=== PATIENT | male | born 1995 | race Caucasian/White ===

== ENCOUNTER 2018-01-24 18:01 | Outpatient (CLI) | payer SELFPAY | END 2018-01-24 18:02 | disposition critical access hospital (66) | LOC: EMS 18:01 | PROVIDERS: ATTEND Surgery | DX: T67.5XXA Heat exhaustion, unspecified, initial encounter (principal) | CPT/HCPCS: A0425; A0429 ==

== ENCOUNTER 2018-01-24 18:08 | Emergency (ER) | payer SELFPAY ==
[2018-01-24] MEDS ORDERED: SODIUM CHLORIDE 0.9% 1,000 ML IV ONE (18:13)
--- NOTE | 2018-01-24 18:14 | ED Physician Documentation ---
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 He got off work and then went and had a beer or 2 and was found at a bus stop slumped over and altered. He has no specific complaints and just wants to drink water.) Review of Systems Constitutional: reports: Fatigue. denies: Fever, Chills Cardiac: denies: Chest pain / pressure, Palpitations Respiratory: denies: Dyspnea, Cough GI: denies: Abdominal Pain PD PAST MEDICAL HISTORY - Present Medications Home Medications: Ambulatory Orders Medication Instructions Recorded Confirmed No Known Home Medications [No 01/24/18 01/24/18 Known Home Medications] - Allergies Allergies/Adverse Reactions: Allergies Allergy/AdvReac Type Severity Reaction Status Date / Time No Known Drug Allergies Allergy Verified 01/24/18 18:14 PD ED PE NORMAL - Vitals Vital signs reviewed: Yes - General General: Alert and oriented X 3 (Somnolent but easily arousable) - HEENT HEENT: PERRL, EOMI (With plenty of horizontal nystagmus) - Neck Neck: Supple, no meningeal sign, No bony TTP - Cardiac Cardiac: RRR, No murmur - Respiratory Respiratory: No respiratory distress, Clear bilaterally - Abdomen Abdomen: Non tender - Back Back: No CVA TTP, No spinal TTP - Derm Derm: Normal color, Warm and dry - Extremities Extremities: No edema, No calf tenderness / cord - Neuro Neuro: Alert and oriented X 3, Normal speech - Psych Psych: Normal mood, Normal affect Results - Vitals Vitals: Vital Signs - 24 hr 01/24/18 01/24/18 01/24/18 18:10 18:20 19:00 Temperature 36.1 C L Heart Rate 68 94 98 Respiratory 16 15 15 Rate Blood Pressure 121/69 121/69 113/63 O2 Saturation 96 96 100 01/24/18 01/24/18 20:42 20:49 Temperature 36.7 C Heart Rate 88 Respiratory 15 Rate Blood Pressure 104/59 L O2 Saturation 98 Oxygen O2 Source Room air - Labs Labs: Laboratory Tests 01/24/18 18:15 Sodium 143 Potassium 3.8 Chloride 109 Carbon Dioxide 25 Anion Gap 9.0 BUN 10 Creatinine 1.1 Estimated GFR (MDRD) 82 L Glucose 100 Calcium 8.9 Total Bilirubin 0.4 AST 28 ALT 30 Alkaline Phosphatase 52 Total Protein 7.2 Albumin 4.4 Globulin 2.8 Albumin/Globulin Ratio 1.6 Lipase 42 Ethyl Alcohol 200.4 PD MEDICAL DECISION MAKING - ED course ED course: He slept in the department for a while and then woke up he was ambulatory without issue, normal gait. - Sepsis Event Vital Signs: Vital Signs - 24 hr 01/24/18 01/24/18 01/24/18 18:10 18:20 19:00 Temperature 36.1 C L Heart Rate 68 94 98 Respiratory 16 15 15 Rate Blood Pressure 121/69 121/69 113/63 O2 Saturation 96 96 100 01/24/18 01/24/18 20:42 20:49 Temperature 36.7 C Heart Rate 88 Respiratory 15 Rate Blood Pressure 104/59 L O2 Saturation 98 Oxygen O2 Source Room air Departure - Departure Disposition: 01 Home, Self Care Clinical Impression: Alcohol intoxication Qualifiers: Complication of substance-induced condition: uncomplicated Qualified Code(s): F10.920 - Alcohol use, unspecified with intoxication, uncomplicated Condition: Good Instructions: ED Alcohol Intoxication Comments: Call your doctor to arrange a follow-up appointment, make the next available appointment. In the interim, return anytime if worse or if new symptoms develop. Discharge Date/Time: 01/24/18 20:51
[2018-01-24 18:36] LABS: ALBUMIN 4.4 g/dL (3.2-5.5); ALBUMIN/GLOBULIN RATIO 1.6 (1.0-2.2); BILIRUBIN,TOTAL 0.4 mg/dL (0.2-1.0); CALCIUM 8.9 mg/dL (8.5-10.3); CREATININE 1.1 mg/dL (0.6-1.2); TOTAL PROTEIN 7.2 g/dL (6.7-8.2)
[2018-01-24 20:43] VITALS: BP 104/59
== END 2018-01-24 20:51 | disposition home or self-care (01) ==
LOC: EDBD → ED 18:08
DX: F10.920 Alcohol use, unspecified with intoxication, uncomplicated (principal)
CPT/HCPCS: 36415; 80053; 80320; 83690; 96360; 99283